=== PATIENT | female | born 1995 | race Caucasian/White ===

== ENCOUNTER 2017-02-24 03:50 | Emergency (ER) | payer MEDICAID ==
--- NOTE | 2017-02-24 04:26 | ED Physician Chart ---
Chief Complaint/HPI - Patient Information Date Seen:: 02/24/17 Time Seen:: 04:20 Chief Complaint:: cp History of Present Illness:: pt awoke 1 hr ago w a sharp pain at left chest w rad to l arm and l back. felt anxious and sob. has had reflux yesterday and recent related to being gravid. on no meds. had a nrml baby by vaginal 4 months ago (not breast feeding) no hx of cardiac dz. no hx of drugs x last 4 yrs. (no recent c meth, nor cocaine nor ivda) no fever. no leg edema or pain. Allergies:: Allergies Allergy/AdvReac Type Severity Reaction Status Date / Time No Known Allergies Allergy Verified 02/24/17 03:58 Vitals:: Vital Signs - 8 hr 02/24/17 03:55 Temp 98.5 F HR 98 RR 16 BP 127/85 O2 Sat % 100 Historian:: Patient Review of Systems - Review of Systems General/Constitutional: No fever, No chills, No weight loss, No weakness, No diaphoresis, No edema, No loss of appetite Skin: No skin lesions, No rash, No bruising Head: No headache, No light-headedness Eyes: No loss of vision, No pain, No diplopia ENT: No earache, No nasal drainage, No sore throat, No tinnitus Neck: No neck pain, No swelling, No thyromegaly, No stiffness, No mass noted Cardio Vascular: Chest pain, No palpitations, No PND, No orthopnea, No edema Pulmonary: No SOB, No cough, No sputum, No wheezing GI: No nausea, No vomiting, No diarrhea, No pain, No melena, No hematochezia, No constipation, No hematemesis G/U: No dysuria, No frequency, No hematuria Musculoskeletal: No bone or joint pain, No back pain, No muscle pain Endocrine: No polyuria, No polydipsia Psychiatric: No prior psych history, No depression, No anxiety, No suicidal ideation Hematopoietic: No bruising, No lymphadenopathy Allergic/Immuno: No urticaria, No angioedema Neurological: No syncope, No focal symptoms, No weakness, No paresthesia, No headache, No seizure, No dizziness, No confusion, No vertigo Past Medical History - Past Medical History Past Medical History: Other (delivered a baby by nvd 4 months ago. ) Social History: Non Smoker, No Alcohol, No Drug Use, Lives With Parents Medication: Reviewed Family Medical History - Family Member Mother Ethnicity: Living Status: Still Living Hx Family Cancer: Yes Hx Family Hypertension: Yes Hx Family Diabetes: Yes Physical Exam - Physical Examination General/Constitutional: Awake, Well-developed, well-nourished, Alert, No distress, GCS 15, Non-toxic appearing, Ambulatory Other Gen/Cons comments:: obese. in nad. Head: Atraumatic Eyes: Lids, conjuctiva normal, PERRL, EOMI Skin: Nl inspection, No rash, No skin lesions, No ecchymosis, Well hydrated, No lymphadenopathy ENMT: External ears, nose nl, Nasal exam nl, Lips, teeth, gums nl Neck: Nontender, Full ROM w/o pain, No JVD, No nuchal rigidity, No bruit, No mass, No stridor Respiratory: Nl effort/Exclusion, Clear to Auscultation, No Wheeze/Rhonchi/Rales Cardio Vascular: RRR, No murmur, gallop, rubs, NL S1 S2 GI: No tenderness/rebounding/guarding, No organomegaly, No hernia, Normal BS's, Nondistended, No mass/bruits, No McBurney tenderness : No CVA tenderness Extremities: No tenderness or effusion, Full ROM, normal strength in all extremities, No edema, Normal digits & nails Other Extremities comments:: no calf edema nor tndrness Neuro/Psych: Alert/oriented, DTR's symmetric, Normal sensory exam, Normal motor strength, Judgement/insight normal, Mood normal, Normal gait, No focal deficits Other Neuro/Psych comments:: mild anxious Misc: normal gait, Normal back, No paraspinal tenderness Labs/Radiology/EKG Results - Lab Results Results: Laboratory Tests 02/24/17 02/24/17 02/24/17 04:25 04:25 04:25 WBC 7.7 RBC 3.83 Hgb 10.5 L Hct 31.6 L D MCV 82.6 MCH 27.4 MCHC Differential 33.2 RDW 13.5 Plt Count 226 MPV 8.6 Neutrophils % 63.0 Lymphocytes % 29.6 Monocytes % 6.4 Eosinophils % 1.0 Basophils % 0.0 D-Dimer 585 H Sodium 135 L Potassium 3.9 Chloride 104 Carbon Dioxide 24.5 Anion Gap 10.4 BUN 8 Creatinine 0.5 L Est GFR ( Amer) > 60.0 Est GFR (Non-Af Amer) > 60.0 BUN/Creatinine Ratio 16.0 Glucose 104 Calcium 9.6 Total Bilirubin 0.2 L AST 13 ALT 11 Alkaline Phosphatase 66 Creatine Kinase 59 Troponin I < 0.01 L Total Protein 7.4 Albumin 3.8 Globulin 3.6 Albumin/Globulin Ratio 1.1 Beta HCG, Quant 18434 Urine Source Urine Color Urine Clarity Urine pH Ur Specific [place] Urine Protein Urine Glucose (UA) Urine Ketones Urine Blood Urine Nitrate Urine Bilirubin Urine Urobilinogen Ur Leukocyte Esterase Urine RBC Urine WBC Ur Epithelial Cells Urine Bacteria 02/24/17 04:30 WBC RBC Hgb Hct MCV MCH MCHC Differential RDW Plt Count MPV Neutrophils % Lymphocytes % Monocytes % Eosinophils % Basophils % D-Dimer Sodium Potassium Chloride Carbon Dioxide Anion Gap BUN Creatinine Est GFR ( Amer) Est GFR (Non-Af Amer) BUN/Creatinine Ratio Glucose Calcium Total Bilirubin AST ALT Alkaline Phosphatase Creatine Kinase Troponin I Total Protein Albumin Globulin Albumin/Globulin Ratio Beta HCG, Quant Urine Source CLEAN C Urine Color YELLOW Urine Clarity HAZY Urine pH 6.5 Ur Specific [place] 1.010 Urine Protein NEGATIVE Urine Glucose (UA) NEGATIVE Urine Ketones NEGATIVE Urine Blood TRACE Urine Nitrate NEGATIVE Urine Bilirubin NEGATIVE Urine Urobilinogen 0.2 Ur Leukocyte Esterase SMALL H Urine RBC 0-2 Urine WBC 2-5 Ur Epithelial Cells FEW Urine Bacteria FEW - Radiology Results Results: us b legs no dvt, nrml us pelvis- nrml iup 8wks 5d. fhr 65, no bleed, no abruption etc.. - EKG Interpretations EKG Time:: 04:00 Rhythm: nsr Kuna: 28 Rate: 96 Comments:: nrml st/t waves,...wnl ED Septic Shock - . Is Septic Shock (SBP<90, OR Lactate>4 mmol\L) present?: No - <6hrs of presentation: Vital Signs: Vital Signs - 8 hr 02/24/17 03:55 Temp 98.5 F HR 98 RR 16 BP 127/85 O2 Sat % 100 Reassessment (Disposition) - Reassessment Reassessment:: no ectopy on monitor pt feels pain gone/better after tylenol/maalox. dw pt suspcet gerd as cause of her pain. advised she try gigger and freq small meals. pt is not on a prenat mvi...will rx. advise she see ob/gy dr in next week. may return if worse. Reassessment Condition:: Improved - Diagnosis Diagnosis:: 1 noncardiac chest pain likely 2ndary to gerd 2 gravid 8wks 5 days w viable iup - Aftercare/Follow up Instructions Aftercare/Follow-Up Instructions:: Counseled pt regarding lab results/diagnosis & need follow up - Patient Disposition Discharge/Transfer:: Home Condition at Disposition:: Improved
[2017-02-24] MEDS ORDERED: Maalox 30 mL Cup PO ONE (04:27)
[2017-02-24 04:34] LABS: % LYMPHOCYTES 29.6 % (20.0-50.0); % MONOCYTES 6.4 % (2.0-10.0); HEMOGLOBIN 10.5 gm/dL (11.7-15.5); MEAN CELL VOLUME 82.6 fl (81-100); MEAN CORPUSCULAR HEMOGLOBIN 27.4 pg (27.0-31.0); MEAN CORPUSCULAR HGB CONC 33.2 pg (28.0-36.0); MEAN PLATELET VOLUME 8.6 fl; NEUTROPHILE ABSOLUTE 4.8 Th/cmm (1.8-8.0); PLATELET COUNT 226 Th/cmm (150-400); RED BLOOD COUNT 3.83 Mil/cmm (3.80-5.10); RED CELL DISTRIBUTION WIDTH 13.5 % (11.5-20.0); WHITE BLOOD COUNT 7.7 Th/cmm (4.8-10.8)
[2017-02-24] MEDS ORDERED: Maalox 30 mL Cup ONE (04:37)
[2017-02-24 04:41] LABS: HEMATOCRIT 31.6 % (35.0-45.0)
[2017-02-24 04:51] LABS: URINE BILIRUBIN NEGATIVE (NEGATIVE); URINE BLOOD TRACE (NEGATIVE); URINE COLOR YELLOW; URINE GLUCOSE (UA) NEGATIVE (NEGATIVE); URINE KETONE NEGATIVE (NEGATIVE); URINE PH 6.5; URINE PROTEIN NEGATIVE (NEGATIVE); URINE UROBILINOGEN 0.2 E.U./dL (0.2 - 1.0)
[2017-02-24 04:53] LABS: URINE BACTERIA FEW /hpf (NONE SEEN); URINE EPITHELIAL CELLS FEW /lpf (FEW); URINE RBC 0-2 /hpf (0-5)
[2017-02-24 05:04] LABS: HCG QUANT 59795 mIU/mL
[2017-02-24 05:15] LABS: ALB/GLOB RATIO 1.1 (1.0-1.8); ALKALINE PHOSPHATASE 66 U/L (34-104); ANION GAP 10.4 (7.0-16.0); BILIRUBIN,TOTAL 0.2 mg/dL (0.3-1.0); BUN - UREA NITROGEN 8 mg/dL (7-25); CALCIUM SERUM 9.6 mg/dL (8.6-10.3); CARBON DIOXIDE 24.5 mEq/L (21.0-31.0); CHLORIDE 104 mEq/L (98-107); CREATININE - SERUM 0.5 mg/dL (0.6-1.2); GLUCOSE 104 mg/dL (70-105); POTASSIUM SERUM 3.9 mEq/L (3.5-5.1); SGOT 13 U/L (13-39); SGPT/ALT 11 U/L (7-52)
[2017-02-24 05:19] LABS: SODIUM SERUM 135 mEq/L (136-145)
--- NOTE | 2017-02-24 09:09 | Diagnostic Imaging Report ---
Bilateral lower extremity DVT study HISTORY: Pain COMPARISON: None Technique: Longitudinal and transverse sonographic images of the bilateral lower extremity veins were obtained with doppler analysis. FINDINGS: There is normal compressibility, augmentation and phasicity of the bilateral common femoral, superficial femoral, popliteal, and posterior tibial veins. No thrombus is visualized. IMPRESSION: No evidence of thrombus within the bilateral lower extremity veins.
--- NOTE | 2017-02-24 09:14 | Diagnostic Imaging Report ---
Ultrasound pelvis History: Chest pain. Positive beta hCG. Last menstrual. 11/22/2017 Technique: Sonography of the pelvis was performed in multiple planes transabdominally. Findings: Exam is limited as patient refused transvaginal images. The uterus measures 12.0 x 5.2 x 8.2 cm and demonstrates a heterogeneous echotexture. An intrauterine gestational sac is seen measuring 3.6 cm. A yolk sac is visualized. An embryo noted with crown-rump length measuring 2.11 cm corresponding to gestational age of 8 weeks and 5 days. The heart rate was 65 beats per minutes. The right ovary measures 3.2 x 2.1 cm. Left measures 2.4 x 1.6 cm. No evidence of free fluid in the pelvis. IMPRESSION: Single live intrauterine gestation with estimated gestational age of 8 weeks and 5 days +/- 1 week based on crown-rump length. The heart rate was decreased at 65 bpm. Please correlate clinically. Given these findings serial follow-up beta-hCGs and short-term follow-up ultrasound is recommended for further assessment and to ensure viability. No evidence of free fluid in the pelvis.
== END 2017-02-24 06:25 | disposition home or self-care (01) ==
LOC: ER 03:50
DX: O26.891 Other specified pregnancy related conditions, first trimester (principal); R07.89 Other chest pain; Z3A.08 8 weeks gestation of pregnancy
CPT/HCPCS: 36415-UA; 76856-TC; 80053-TC; 81001-TC; 82550-TC; 84484-TC; 84702-TC; 85025-TC; 85379-TC; 93005; 93970-TC-50; Z7610

== ENCOUNTER 2018-02-10 03:46 | Emergency (ER) | payer MEDICAID ==
--- NOTE | 2018-02-10 04:10 | ED Physician Chart ---
ED Chief Complaint/HPI - Patient Information Date Seen:: 02/10/18 Time Seen:: 04:00 Chief Complaint:: chest pain History of Present Illness:: Patient has had pain under her left breast radiating to her left side of her back for the last 1 year. Pain is nonpleuritic. Sometimes she awakens during the night with palpitations. No recent upper respiratory tract infection or cough. Allergies:: Allergies Allergy/AdvReac Type Severity Reaction Status Date / Time No Known Allergies Allergy Verified 02/24/17 03:58 Historian:: Patient Review:: Nurse's Note Reviewed ED Review of Systems - Review of Systems General/Constitutional: No fever, No chills Skin: No skin lesions Head: Headache Eyes: No loss of vision ENT: No earache Neck: No neck pain Cardio Vascular: Chest pain, Palpitations Pulmonary: No SOB GI: No nausea, No vomiting, No diarrhea G/U: No dysuria Musculoskeletal: No bone or joint pain, No back pain, No muscle pain Endocrine: No polyuria Psychiatric: No prior psych history Hematopoietic: No bruising, No lymphadenopathy Allergic/Immuno: No urticaria, No angioedema Neurological: No syncope ED Past Medical History - Past Medical History Past Medical History: No significant medical hx Family History: Heart disease, Diabetes Melitus Social History: Non Smoker, No Alcohol, No Drug Use Surgical History: None Psychiatricy History: None Family Medical History - Family Member Mother Ethnicity: Living Status: Still Living Hx Family Cancer: Yes Hx Family Hypertension: Yes Hx Family Diabetes: Yes ED Physical Exam - Physical Examination General/Constitutional: Awake, Well-developed, well-nourished, Alert, No distress, GCS 15, Non-toxic appearing, Ambulatory Head: Atraumatic Eyes: Lids, conjuctiva normal, PERRL, EOMI Skin: Nl inspection, No rash, No skin lesions, No ecchymosis, Well hydrated, No lymphadenopathy ENMT: External ears, nose nl, Nasal exam nl, Lips, teeth, gums nl Neck: Nontender, Full ROM w/o pain, No JVD, No nuchal rigidity, No bruit, No mass, No stridor Respiratory: Nl effort/Exclusion, Clear to Auscultation, No Wheeze/Rhonchi/Rales Cardio Vascular: RRR, No murmur, gallop, rubs, NL S1 S2 GI: No tenderness/rebounding/guarding, No organomegaly, No hernia, Normal BS's, Nondistended, No mass/bruits, No McBurney tenderness : No CVA tenderness Extremities: No tenderness or effusion, Full ROM, normal strength in all extremities, No edema, Normal digits & nails Neuro/Psych: Alert/oriented, DTR's symmetric, Normal sensory exam, Normal motor strength, Judgement/insight normal, Mood normal, Normal gait, No focal deficits Misc: Normal back, No paraspinal tenderness ED Labs/Radiology/EKG Results - EKG Interpretations Rate & Rhythm: normal sinus rhythm with a rate of 83 [place]: normal Comments:: T wave changes leads V1 to V4 ED Septic Shock - . Is Septic Shock (SBP<90, OR Lactate>4 mmol\L) present?: No ED Reassessment (Disposition) - Reassessment Reassessment Condition:: Unchanged - Diagnosis Diagnosis:: Atypical chest pain - Aftercare/Follow up Instructions Aftercare/Follow-Up Instructions:: Refer to Discharge Instructions - Patient Disposition Discharge/Transfer:: Home Condition at Disposition:: Stable, Unchanged
== END 2018-02-10 05:15 | disposition home or self-care (01) ==
LOC: ER 03:46
DX: R07.89 Other chest pain (principal)
CPT/HCPCS: Z7502